=== PATIENT | male | born 1985 | race African-American/Black ===

== ENCOUNTER 2023-01-18 05:33 | Emergency (ER) | payer BC ==
[2023-01-18 06:47] LABS: Absolute Lymphocytes (CBC) 1.9 K/uL (0.7-4.9); Hematocrit 40.9 % (39.6-49.0); Lymphocytes % 47.6 % (15.3-44.8); MCV 82.2 fL (80-100); MPV 7.3 fL (7.6-11.3); Platelets 280 thou/uL (152-406); RBC Red Blood Cell Count 4.97 M/uL (4.33-5.43)
[2023-01-18 06:50] LABS: Potassium 3.5 mEq/L (3.5-5.1)
--- NOTE | 2023-01-18 06:54 | ER ---
Nurse's Notes [facility] Name: Guillermo Turner Age: 37 yrs Sex: Male : 1985 Arrival Date: 01/18/2023 Time: 05:33 Bed 8 Private MD: Diagnosis: Paresthesia of skin;Elevated blood-pressure reading, without diagnosis of hypertension Presentation: 01/18 06:01 Chief complaint: Patient states: for the past 2 months pt have been feeling generalized as6 numbness all over his body and wants to see what is wrong. Coronavirus screen: At this time, the client does not indicate any symptoms associated with coronavirus-19. Ebola Screen: No symptoms or risks identified at this time. Initial Sepsis Screen: Does the patient meet any 2 criteria? No. Patient's initial sepsis screen is negative. Does the patient have a suspected source of infection? No. Patient's initial sepsis screen is negative. Risk Assessment: Do you want to hurt yourself or someone else? Patient reports no desire to harm self or others. Onset of symptoms was October 2022. 06:01 Acuity: RAJESH 3 as6 06:01 Method Of Arrival: Ambulatory as6 Triage Assessment: 06:00 General: Appears in no apparent distress. Behavior is cooperative, appropriate for age, bp anxious. Pain: Denies pain. EENT: No deficits noted. Neuro: Reports numbness GENERALIZED. Cardiovascular: No deficits noted. Respiratory: No deficits noted. GI: No signs and/or symptoms were reported involving the gastrointestinal system. : No signs and/or symptoms were reported regarding the genitourinary system. Derm: No deficits noted. Musculoskeletal: No deficits noted. Historical: - Allergies: 06:01 No Known Allergies; as6 - Home Meds: 06:01 None [Active]; as6 - PMHx: 06:01 None; as6 - PSHx: 06:01 None; as6 - Immunization history:: Client reports receiving the 2nd dose of the Covid vaccine, [employer]. - Social history:: Smoking status: Patient denies any tobacco usage or history of. Screenin:15 [facility] ED Fall Risk Assessment (Adult) History of falling in the last 3 months, lg3 including since admission No falls in past 3 months (0 pts). Abuse screen: Denies threats or abuse. Denies injuries from another. Nutritional screening: No deficits noted. Tuberculosis screening: No symptoms or risk factors identified. Assessment: 06:15 General: Appears in no apparent distress. comfortable, Behavior is calm, cooperative. lg3 Pain: Denies pain. Neuro: No deficits noted. Chowdhury Agitation-Sedation Scale (RASS): 0 - Alert and Calm Level of Consciousness is awake, alert, obeys commands, Oriented to person, place, time, situation, Reports numbness all over. Cardiovascular: No deficits noted. Denies chest pain, shortness of breath, Capillary refill < 3 seconds Clubbing of nail beds is absent JVD is absent Patient's skin is warm and dry. Respiratory: No deficits noted. Airway is patent Respiratory effort is even, unlabored, Respiratory pattern is regular, symmetrical. GI: No deficits noted. No signs and/or symptoms were reported involving the gastrointestinal system. : No deficits noted. No signs and/or symptoms were reported regarding the genitourinary system. EENT: No deficits noted. No signs and/or symptoms were reported regarding the EENT system. Derm: No deficits noted. Skin is intact, is healthy with good turgor, Skin is dry, Skin is normal, Skin temperature is warm. Musculoskeletal: No deficits noted. Circulation, motion, and sensation intact. Range of motion: intact in all extremities. 06:57 Reassessment: DC HOME AMBULATORY. bp Vital Signs: 06:00 BP 144 / 99; Pulse 73; Resp 18 S; Temp 97.9(O); Pulse Ox 100% on R/A; Weight 52.16 kg as6 (R); Height 5 ft. 5 in. (R); Pain 0/10; 06:57 BP 109 / 92; Pulse 66; Resp 16; Pulse Ox 100% ; bp 06:00 Body Mass Index 19.14 (52.16 kg, 165.1 cm) as6 06:00 Pain Scale: Adult as6 ED Course: 05:39 Patient arrived in ED. ag3 05:47 Darrin Burt DO is Attending Physician. ms3 05:54 Reji Rodriguez, RN is Primary Nurse. bp 06:00 Arm band placed on. as6 06:02 Triage completed. as6 06:15 Patient has correct armband on for positive identification. Placed in gown. Bed in low lg3 position. Call light in reach. Side rails up X 1. Client placed on continuous cardiac and pulse oximetry monitoring. NIBP monitoring applied. Door closed. Noise minimized. Warm blanket given. Family accompanied patient. 06:15 Patient maintains SpO2 saturation greater than 95% on room air. lg3 06:20 Inserted saline lock: 20 gauge in left forearm, using aseptic technique. Blood bp collected. 06:53 Jimy Guidry MD is Referral Physician. ms3 06:57 No provider procedures requiring assistance completed. IV discontinued, intact, bp bleeding controlled, No redness/swelling at site. Pressure dressing applied. Administered Medications: No medications were administered Medication: 06:57 VIS not applicable for this client. bp Outcome: 06:53 Discharge ordered by . ms3 06:57 Discharged to home ambulatory, with family. bp 06:57 Condition: stable 06:57 Discharge instructions given to patient, Instructed on discharge instructions, follow up and referral plans. Demonstrated understanding of instructions, follow-up care. 06:58 Patient left the ED. bp Signatures: Reji Rodriguez, RN RN bp Ally Shane ag3 Ivett Rogers, RN RN lg3 Darrin Burt DO DO ms3 Renzo Childers, RN RN as6
--- NOTE | 2023-01-18 06:54 | EDPHYS ---
Physician Documentation [facility] Name: Guillermo Turner Age: 37 yrs Sex: Male : 1985 Arrival Date: 01/18/2023 Time: 05:33 Bed 8 Private MD: ED Physician Darrin Burt HPI: 01/18 06:16 This 37 yrs old Black Male presents to ER via Ambulatory with complaints of BODY FEELS ms3 NUMB. 06:16 37-year-old male with no past medical history presents for difficulty feeling his body ms3 after waking. Patient states he has gone to 2 urgent cares and the [place] [facility] without explanation of what he is feeling. Patient states this has been ongoing for 2 months. Patient denies nausea, vomiting, chest pain, shortness of breath, fevers, chills. Patient denies pain at this time. Historical: - Allergies: 06:01 No Known Allergies; as6 - Home Meds: 06:01 None [Active]; as6 - PMHx: 06:01 None; as6 - PSHx: 06:01 None; as6 - Immunization history:: Client reports receiving the 2nd dose of the Covid vaccine, [employer]. - Social history:: Smoking status: Patient denies any tobacco usage or history of. ROS: 06:16 Constitutional: Negative for fever, and chills. Neck: Negative for injury, pain, and ms3 swelling, Cardiovascular: Negative for chest pain, and palpitations. Respiratory: Negative for shortness of breath, cough, wheezing, and pleuritic chest pain, Abdomen/GI: Negative for abdominal pain, nausea, vomiting, diarrhea, and constipation, MS/Extremity: Negative for injury and deformity, Skin: Negative for injury, rash, and discoloration. 06:16 Neuro: Positive for body numbness. 06:16 All other systems are negative. Exam: 06:16 Constitutional: This is a well developed, well nourished patient who is awake, alert, ms3 and in no acute distress. Head/Face: Normocephalic, atraumatic. Neck: Trachea midline, no cervical lymphadenopathy. Supple, full range of motion without nuchal rigidity, or vertebral point tenderness. No Meningismus. Chest/axilla: Normal chest wall appearance and motion. Nontender with no deformity. Cardiovascular: Regular rate and rhythm with a normal S1 and S2. No gallops, murmurs, or rubs. Normal PMI, no JVD. No pulse deficits. Respiratory: Lungs have equal breath sounds bilaterally, clear to auscultation and percussion. No rales, rhonchi or wheezes noted. No increased work of breathing, no retractions or nasal flaring. Abdomen/GI: Soft, non-tender, with normal bowel sounds. No distension or tympany. No guarding or rebound. No evidence of tenderness throughout. Skin: Warm, dry with normal turgor. Normal color with no rashes, no lesions, and no evidence of cellulitis. MS/ Extremity: Pulses equal, no cyanosis. Neurovascular intact. Full, normal range of motion. Vital Signs: 06:00 BP 144 / 99; Pulse 73; Resp 18 S; Temp 97.9(O); Pulse Ox 100% on R/A; Weight 52.16 kg as6 (R); Height 5 ft. 5 in. (R); Pain 0/10; 06:57 BP 109 / 92; Pulse 66; Resp 16; Pulse Ox 100% ; bp 06:00 Body Mass Index 19.14 (52.16 kg, 165.1 cm) as6 06:00 Pain Scale: Adult as6 MDM: 06:00 Patient medically screened. ms3 06:16 Differential Diagnosis Electrolyte abnormality vs Anemia vs anxiety. ms3 06:55 Data reviewed: vital signs, nurses notes, lab test result(s), and as a result, I will ms3 discharge patient. Historians other than the Patient: Spouse/Significant Other: . Counseling: I had a detailed discussion with the patient and/or guardian regarding the historical points, exam findings, and any diagnostic results supporting the discharge/admit diagnosis, lab results, the need for outpatient follow up, to return to the emergency department if symptoms worsen or persist or if there are any questions or concerns that arise at home. Special discussion: I discussed with the patient/guardian in detail that at this point there is no indication for admission to the hospital. It is understood, however, that if the symptoms persist or worsen the patient needs to return immediately for re-evaluation. ED course: Discussed labs with patient. Patient to follow-up with primary care physician in 2 to 3 days. Patient understands and agrees with plan. All questions were answered. Return precautions discussed include worsening symptoms, or any other concerns. On reevaluation patient is alert and orient x4, no apparent distress, nontoxic-appearing, ambulatory in emergency department, speaking full sentences. 01/18 06:00 Order name: CBC with Diff; Complete Time: 06:53 ms3 01/18 06:00 Order name: BMP; Complete Time: 06:53 ms3 Administered Medications: No medications were administered Disposition Summary: 01/18/23 06:53 Discharge Ordered Location: Home ms3 Condition: Stable ms3 Diagnosis - Paresthesia of skin ms3 - Elevated blood-pressure reading, without diagnosis of hypertension ms3 Followup: ms3 - With: - When: 2 - 3 days - Reason: Recheck today's complaints Discharge Instructions: - Discharge Summary Sheet ms3 - Paresthesia ms3 - Paresthesia, [id number] ms3 - DASH Eating Plan ms3 - Managing Your Hypertension ms3 - Preventing Hypertension ms3 Forms: - Medication Reconciliation Form ms3 - Thank You Letter ms3 - Antibiotic Education ms3 - Prescription Opioid Use ms3 - Patient Portal Instructions ms3 - Leadership Thank You Letter ms3 Signatures: Dispatcher [employer] Darrin Mariee DO DO ms3 Renzo Childers, RN RN as6
[2023-01-18 07:10] VITALS: TEMP 97.9; O2SAT 100
[2023-01-18 07:15] VITALS: BP 109/92
== END 2023-01-18 06:58 | disposition home or self-care (01) ==
LOC: ER 05:33
DX: R20.2 Paresthesia of skin (principal); R03.0 Elevated blood-pressure reading, without diagnosis of hypertension
CPT/HCPCS: 36415; 80048; 85025; 99284